=== PATIENT | female | born 1995 | race Caucasian/White ===

== ENCOUNTER 2018-07-03 10:46 | Outpatient (CLI) | payer MEDICAID, SELFPAY ==
[2018-07-03 11:27] LABS: Kit/Specimen SENT
[2018-07-03 11:36] LABS: Abs Immature Grans 0.02 k/cumm (0.0-0.09); Absolute Basophil Count 0.01 k/cumm (0.0-0.2); Absolute Eosinophil Count 0.03 k/cumm (0.0-0.7); Absolute Lymphocyte Count 1.36 k/cumm (1.2-3.4); Absolute Monocyte Count 0.36 k/cumm (0.11-0.7); Absolute Neutrophil Count 6.72 k/cumm (1.2-6.7); Basophils % 0.1; Eosinophils % 0.4; HCT 35.2 % (36.0-46.0); HGB 11.6 g/dL (12.0-15.5); Immature Grans % 0.2; Mean Corpuscular Hemoglobin 29.2 pg (27.0-33.0); Mean Corpuscular Volume 88.7 fL (80-95); Mean Platelet Volume 10.4 fL (8.0-11.0); Monocytes % 4.2; Neutrophils % 79.1; Platelet Count 243 x1000/uL (130-400); RBC 3.97 m/cumm (4.00-5.20); RBC Distribution Width 12.9 % (11.7-14.6)
[2018-07-03 13:16] LABS: *AMPHETAMINES SCREEN URINE Negative (Negative); *BARBITURATES SCREEN URINE Negative (Negative); *BENZODIAZEPINES SCREEN URINE Negative (Negative); Cannabinoids THC Negative (Negative); Cocaine Screen,Urine Negative (Negative); METHADONE URINE SCREEN Negative (Negative); OPIATES URINE SCREEN Negative (Negative)
[2018-07-03 13:20] LABS: Tricyclic Antidepressants Negative (Negative)
[2018-07-04 09:57] LABS: Varicella IgG Antibody Positive
[2018-07-04 10:00] LABS: Syphilis Serology (RPR) Negative (Negative)
[2018-07-04 10:11] LABS: Rubella IgG Ab (UVM) Positive
[2018-07-04 14:12] LABS: Hepatitis B Surface Ag Negative (NEGAT)
[2018-07-04 14:14] LABS: HIV-1/2 Ag & Ab Screen Negative (NEGAT)
[2018-07-04 14:19] LABS: Hepatitis C Ab w Rflx HCV PCR Negative (NEGAT)
[2018-07-06 13:29] LABS: Buprenorphine Negative; Norbuprenorphine Negative
== END 2018-07-03 11:06 ==
PROVIDERS: Visit Provider Advanced Practice Midwife
DX: Z34.91 Encounter for supervision of normal pregnancy, unspecified, first trimester (principal); Z11.59 Encounter for screening for other viral diseases; Z01.84 Encounter for antibody response examination; Z11.4 Encounter for screening for human immunodeficiency virus [HIV]
CPT/HCPCS: 36415; 80055; 80307; 86787; 86803; 86850; 86900; 86901; 87340; 87389; 86592; 86762; 87086

== ENCOUNTER 2018-08-02 14:59 | Outpatient (CLI) | payer MEDICAID, SELFPAY ==
[2018-08-06 16:19] LABS: AFP 44.2 ng/mL; Cigarette smoking status non-smoker; GA used in risk estimate Dates estimate; IVF Pregnancy No; Initial or repeat testing Initial testing; Insulin dependent diabetes No; Maternal Weight 116 lbs; Number of Fetuses 1; Physician Phone Number 802-748-7300; Prev Pregnancy w/NTD No; RECOMMENDED FOLLOW UP None.; Results Summary Normal risk
== END 2018-08-02 15:19 ==
PROVIDERS: Visit Provider Advanced Practice Midwife
DX: Z34.91 Encounter for supervision of normal pregnancy, unspecified, first trimester (principal); Z36.89 Encounter for other specified antenatal screening
CPT/HCPCS: 36415; 82105

== ENCOUNTER 2018-08-28 00:48 | Outpatient (CLI) | payer MEDICAID, SELFPAY ==
--- NOTE | 2018-08-28 14:00 | DI.US_ITS ---
SYMPTOMS/DIAGNOSIS: SURVEY, ANATOMY SCAN, Z34.90 OBSTETRICAL ULTRASOUND: Predicted Gestational Age: Indication/History: 19+3 Wks Range: 18+3 to 20+3 Prior US done on: Determined by: X First US LMP History EDC by prior US: 10/19/18 For multiple gestations: Baby PLACENTA: Grade: I Location: Anterior Posterior PRESENTATION: RT X LT LOW LYING PREVIA Cephalic Trans (Head RT LT ) Varied X Breech BIOMETRY: Anatomy Identified: BPD: 46 mm 19+6 wks 4-chamber Heart X Heart Rate 150 BPM HC: 177 mm 20+1 wks LVOT X Post Fossa X AC: 144 mm 19+5 wks RVOT X Ventricles X FL: 31 mm 19+4 wks Stomach X Nose X Bladder X Lips X Cisterna Magna: 5.0 mm CI: 78 Kidneys X Palate X Cerebellum: 1.92 cm 3- vessel cord X Spine X EFW: grms % Cord Insertion X NS= not seen Composite Age (US) 19+6 wks Many abnormalities cannot be diagnosed. A normal exam does not exclude congenital abnormality. EDC by US 10/16/18 Amniotic Fluid Index: Normal COMMENTS: 0 pounds, 1 ounce RUQ: LUQ: RLQ: LLQ: Total: cm Biophysical Profile: Score 0/2 INGRIS (>2cm) Respirations (>30 sec) Body flexion/extension Extremity flexion/extension TOTAL SCORE Routine examination was performed. There is a single living intrauterine gestation. Estimated sonographic age is 19 weeks 6 days. No or placental abnormalities are identified.
== END 2018-08-28 01:08 ==
PROVIDERS: Visit Provider Advanced Practice Midwife
DX: Z34.92 Encounter for supervision of normal pregnancy, unspecified, second trimester (principal)
CPT/HCPCS: 76805

== ENCOUNTER 2018-10-23 01:13 | Outpatient (CLI) | payer MEDICAID, SELFPAY ==
[2018-10-23 14:37] LABS: HGB 9.6 g/dL (12.0-15.5); Mean Corpuscular Hemoglobin 29.1 pg (27.0-33.0); Mean Corpuscular Volume 90.9 fL (80-95); Mean Platelet Volume 11.1 fL (8.0-11.0); Platelet Count 206 x1000/uL (130-400); RBC Distribution Width 12.9 % (11.7-14.6)
[2018-10-23 14:40] LABS: Glucose,1 Hr (Glucola) 99 mg/dL (80-140)
== END 2018-10-23 01:33 ==
PROVIDERS: Visit Provider Advanced Practice Midwife
DX: Z34.92 Encounter for supervision of normal pregnancy, unspecified, second trimester (principal)
CPT/HCPCS: 36415; 82950; 85027

== ENCOUNTER 2018-12-25 20:20 | Outpatient (REF) | payer MEDICAID, SELFPAY ==
[2018-12-25 19:46] LABS: *AMPHETAMINES SCREEN URINE Negative (Negative); *BARBITURATES SCREEN URINE Negative (Negative); *BENZODIAZEPINES SCREEN URINE Negative (Negative); Cannabinoids THC Negative (Negative); Cocaine Screen,Urine Negative (Negative); METHADONE URINE SCREEN Negative (Negative); OPIATES URINE SCREEN Negative (Negative)
[2018-12-25 19:58] LABS: Tricyclic Antidepressants Negative (Negative)
[2019-01-01 11:23] LABS: Buprenorphine Negative; Norbuprenorphine Negative
== END 2018-12-25 20:40 ==
LOC: LBN 20:20
PROVIDERS: Visit Provider Advanced Practice Midwife
DX: Z34.90 Encounter for supervision of normal pregnancy, unspecified, unspecified trimester (principal); Z22.322 Carrier or suspected carrier of Methicillin resistant Staphylococcus aureus
CPT/HCPCS: 80307; 87081

== ENCOUNTER 2019-01-02 10:17 | Observation (INO) | payer MEDICAID, SELFPAY | END 2019-01-02 12:15 | disposition home or self-care (01) | PROVIDERS: Admitting Provider Obstetrics & Gynecology Gynecology; PCP Family Medicine; Visit Provider Obstetrics & Gynecology Gynecology | DX: Z03.79 Encounter for other suspected maternal and fetal conditions ruled out (principal); Z34.90 Encounter for supervision of normal pregnancy, unspecified, unspecified trimester; Z3A.37 37 weeks gestation of pregnancy | CPT/HCPCS: 59025; G0378 ==

== ENCOUNTER 2019-01-14 07:39 | Inpatient (IN) | payer MEDICAID, SELFPAY ==
[2019-01-14] MEDS: Oxytocin 10 UNITS/ML VIAL IM (08:48)
[2019-01-14] MEDS: Hamamelis Leaf/Glycerin 100 EACH BOX PR (11:44)
[2019-01-14] MEDS: Ibuprofen 600 MG TAB PO (18:31)
[2019-01-15] MEDS: Ibuprofen 600 MG TAB PO (08:03)
== END 2019-01-15 16:00 | disposition home or self-care (01) | DRG 807 ==
PROVIDERS: Admitting Provider Obstetrics & Gynecology; PCP Family Medicine; Visit Provider Obstetrics & Gynecology
DX: O77.0 Labor and delivery complicated by meconium in amniotic fluid (principal); Z37.0 Single live birth; Z3A.39 39 weeks gestation of pregnancy; O92.79 Other disorders of lactation; O99.02 Anemia complicating childbirth; O99.89 Other specified diseases and conditions complicating pregnancy, childbirth and the puerperium; D64.9 Anemia, unspecified; M54.32 Sciatica, left side
CPT/HCPCS: J2590

== ENCOUNTER 2019-02-24 12:48 | Outpatient (REF) | payer MEDICAID, SELFPAY ==
--- NOTE | 2019-02-24 12:00 | PAPFT_PTH ---
PATIENT: Chloe Hudson LOC: [facility] U#:[id number] AGE/SX: 23/F ROOM: RE02/24/[address]: Brittany Woods CNM : 1995 BED: DIS: 02/24/2019 SPEC #: [id number] RECD: 02/24/19 16:03 STATUS: SHRUTHI RENirmal #: [id number] DANA: 02/24/19 12:[address]: Brittany Woods DEPT: COUNT INCLUDES THE [facility] Cytology RECD BY: Yudi Escalera ENTERED: 02/24/19 16:04 SP TYPE: PAPFT OTHR DR: Jackie Travis Tissues: 1 - CX/ENDOCX FOR PAP SMEARS Procedures: PAP THIN PREP/UVM Screening Comments: [id number]
[2019-02-25 16:37] LABS: Chlamydia Result Negative (Negative); GC Result Negative (Negative); Specimen Description CERVIX
== END 2019-02-24 13:08 ==
LOC: LBN 12:48
PROVIDERS: PCP Family Medicine; Visit Provider Advanced Practice Midwife
DX: Z11.3 Encounter for screening for infections with a predominantly sexual mode of transmission (principal); Z12.4 Encounter for screening for malignant neoplasm of cervix; Z11.51 Encounter for screening for human papillomavirus (HPV); Z39.2 Encounter for routine postpartum follow-up
CPT/HCPCS: 87491; 87591; 88142

== ENCOUNTER 2019-03-03 16:55 | Outpatient (REF) | payer MEDICAID, SELFPAY | END 2019-03-03 17:15 | LOC: LBN 16:55 | PROVIDERS: PCP Family Medicine; Visit Provider Advanced Practice Midwife | DX: N89.8 Other specified noninflammatory disorders of vagina (principal) | CPT/HCPCS: 87480; 87510; 87660 ==

== ENCOUNTER 2019-03-10 01:07 | Outpatient (CLI) | payer MEDICAID, SELFPAY ==
--- NOTE | 2019-03-10 14:03 | DI.US_ITS ---
EXAM: US PELVIS AND TRANSVAGINAL CLINICAL HISTORY: bleeding after IUD placed 03/03, 7 wks TECHNIQUE: Ultrasound performed using standard protocol. Transabdominal and transvaginal exams wer e performed. COMPARISON: US OB 2-3 trimester from 08/28/2018 FINDINGS: The uterus measures 8 x 3.9 x 6.0 cm. An IUD is seen positioned within the endometrium. The endomet rium measures 4 millimeters in thickness. The ovaries are normal in size and appearance. There is a small amount of free fluid in the cul-de-sac. The kidneys are unremarkable. IMPRESSION: An IUD appears appropriately positioned within the endometrium.
== END 2019-03-10 01:27 ==
PROVIDERS: PCP Family Medicine; Visit Provider Advanced Practice Midwife
DX: Z30.431 Encounter for routine checking of intrauterine contraceptive device (principal); N93.8 Other specified abnormal uterine and vaginal bleeding
CPT/HCPCS: 76830; 76856

== ENCOUNTER 2019-06-16 11:25 | Outpatient (CLI) | payer MEDICAID, SELFPAY ==
[2019-06-16 13:13] LABS: FREE T4 0.92 ng/dL (0.76-1.46); TSH 0.58 uIU/mL (0.36-3.74)
[2019-06-17 16:48] LABS: T3,Free 3.2 pg/mL (2.8-5.3)
== END 2019-06-16 11:45 ==
PROVIDERS: PCP Family Medicine; Visit Provider Advanced Practice Midwife
DX: Z13.29 Encounter for screening for other suspected endocrine disorder (principal); Z83.49 Family history of other endocrine, nutritional and metabolic diseases
CPT/HCPCS: 36415; 84439; 84443; 84481

== ENCOUNTER 2019-12-22 13:55 | Outpatient (REF) | payer MEDICAID, SELFPAY ==
[2019-12-22 19:43] LABS: TSH (W/Ref FT4) 0.46 uIU/mL (0.36-3.74); Vitamin B12 422 pg/mL (193-986)
== END 2019-12-22 14:15 ==
LOC: NCHCN 13:55
PROVIDERS: PCP Family Medicine; Visit Provider Nurse Practitioner
DX: E53.8 Deficiency of other specified B group vitamins (principal); Z83.49 Family history of other endocrine, nutritional and metabolic diseases
CPT/HCPCS: 82607; 84443

== ENCOUNTER 2020-07-08 02:40 | Outpatient (CLI) | payer MEDICAID, SELFPAY ==
[2020-07-08 10:15] LABS: Kit/Specimen SENT
[2020-07-08 10:28] LABS: Abs Immature Grans 0.02 10^3/uL (0.0-0.06); Absolute Basophil Count 0.02 10^3/uL (0.0-0.2); Absolute Eosinophil Count 0.06 10^3/uL (0.0-0.7); Absolute Lymphocyte Count 1.19 10^3/uL (1.2-3.4); Absolute Neutrophil Count 5.76 10^3/uL (1.2-6.7); Basophils % 0.3; Eosinophils % 0.8; HCT 35.4 % (36.0-46.0); HGB 11.4 g/dL (11.2-15.7); Immature Grans % 0.3; Lymphocytes % 15.8; MCH 29.8 pg (27.0-33.0); MCHC 32.2 % (32.0-36.0); MCV 92.7 fL (80-95); MPV 10.4 fL (8.0-11.0); Monocytes % 6.6; Neutrophils % 76.2; Nucleated RBC 0 %; Platelet Count 240 10^3/uL (130-400); RBC 3.82 10^6/uL (3.93-5.22); RDW 12.5 % (11.7-14.6); RDW-SD 42.8 fL; WBC 7.55 10^3/uL (4.4-10.8)
[2020-07-08 11:14] LABS: ALT 14 U/L (14-59); AST 11 U/L (15-37); Albumin 3.4 g/dL (3.4-5.0); Alkaline Phosphatase 47 U/L (46-116); Anion Gap 5.7 mmol/L (3-11); BUN 6 mg/dL (7-18); Bilirubin, Total 0.3 mg/dL (0.2-1.0); CO2 27.3 mmol/L (21.0-32.0); CREATININE 0.5 mg/dL (0.55-1.02); Calcium 8.6 mg/dL (8.5-10.1); Chloride 102 mmol/L (98-107); Glucose 67 mg/dL (74-106); Potassium 4.1 mmol/L (3.5-5.1); Sodium 135 mmol/L (136-145); Total Protein 6.8 g/dL (6.4-8.2)
[2020-07-09 09:34] LABS: Hepatitis B Surface Ag Negative (Negative)
[2020-07-09 10:13] LABS: HIV-1/2 Ag & Ab Screen Negative (Negative)
[2020-07-09 10:19] LABS: Hepatitis C Ab w Rflx HCV PCR Negative (Negative)
[2020-07-09 10:39] LABS: Varicella IgG Antibody Positive (See Note)
[2020-07-09 10:42] LABS: Rubella IgG Ab (UVM) Positive (See Note)
[2020-07-10 10:41] LABS: Syphilis Total Ab w/Reflex Nonreactive (Nonreactive)
== END 2020-07-08 02:41 | disposition home or self-care (01) ==
PROVIDERS: PCP Nurse Practitioner; Visit Provider Advanced Practice Midwife
DX: Z34.91 Encounter for supervision of normal pregnancy, unspecified, first trimester (principal); Z11.4 Encounter for screening for human immunodeficiency virus [HIV]; Z11.59 Encounter for screening for other viral diseases; Z01.84 Encounter for antibody response examination
CPT/HCPCS: 36415; 80053; 86787; 86803; 86850; 86900; 86901; 87340; 87389; 85025; 86762; 86780

== ENCOUNTER 2020-07-08 15:28 | Outpatient (REF) | payer MEDICAID, SELFPAY ==
[2020-07-08 13:16] LABS: *AMPHETAMINES SCREEN URINE Negative (Negative); *BARBITURATES SCREEN URINE Negative (Negative); *BENZODIAZEPINES SCREEN URINE Negative (Negative); Cannabinoids THC Negative (Negative); Cocaine Screen,Urine Negative (Negative); METHADONE URINE SCREEN Negative (Negative); OPIATES URINE SCREEN Negative (Negative)
[2020-07-08 13:18] LABS: Tricyclic Antidepressants Negative (Negative)
[2020-07-09 16:25] LABS: Chlamydia Result Negative (Negative); GC Result Negative (Negative)
[2020-07-15 10:09] LABS: Buprenorphine Negative ng/mL (Cutoff: 5.0); Norbuprenorphine Negative ng/mL (Cutoff: 2.5)
== END 2020-07-08 15:29 | disposition home or self-care (01) ==
LOC: LBN 15:28
PROVIDERS: PCP Nurse Practitioner; Visit Provider Advanced Practice Midwife
DX: Z34.91 Encounter for supervision of normal pregnancy, unspecified, first trimester (principal); N89.8 Other specified noninflammatory disorders of vagina; Z11.3 Encounter for screening for infections with a predominantly sexual mode of transmission
CPT/HCPCS: 80307; 87491; 87591; 87086; 87480; 87510; 87660

== ENCOUNTER 2020-08-19 02:08 | Outpatient (CLI) | payer MEDICAID, SELFPAY ==
[2020-08-23 11:16] LABS: AFP 43.7 ng/mL; Calculated age at EDD 27 years; Cigarette smoking status non-Smoker; GA used in risk estimate Dates estimate; IVF Pregnancy No; Initial or repeat testing Initial testing; Insulin dependent diabetes No; Maternal Weight 114 lbs; Number of Fetuses 1; Physician Phone Number 802-748-7300; Prev Pregnancy w/NTD No; RECOMMENDED FOLLOW UP None.; Results Summary Normal risk
== END 2020-08-19 02:09 | disposition home or self-care (01) ==
PROVIDERS: Advanced Practice Midwife; PCP Nurse Practitioner; Visit Provider Advanced Practice Midwife
DX: Z34.91 Encounter for supervision of normal pregnancy, unspecified, first trimester (principal); Z36.89 Encounter for other specified antenatal screening
CPT/HCPCS: 36415; 82105

== ENCOUNTER 2020-08-27 04:15 | Outpatient (CLI) | payer MEDICAID, SELFPAY ==
--- NOTE | 2020-08-27 07:45 | DI.US_ITS ---
Exam(s) US OB 2-3 TRIMESTER EXAM: US OB 2-3 TRIMESTER CLINICAL HISTORY: anatomy and placental location,Z34.90. TECHNIQUE: Transabdominal obstetrical ultrasound performed. COMPARISON: US US PELVIS TRANSVAGINAL from 03/10/2019 FINDINGS: Transabdominal obstetrical ultrasound performed. FINDINGS: Number of fetuses: One. position: Varied throughout the examination. heart rate: 136 bpm. Placental location: Anterior. No evidence of previa. Amniotic fluid index: Visually, amount of fluid is within normal limits. ANATOMICAL SURVEY: Within normal limits. BIOMETRIC DATA: BPD: 4.5cm consistent with 19 weeks 4 days. HC: 16.3cm consistent with 19 weeks 1 day. AC: 13.7cm consistent with 19 weeks 1 day. FL: 2.9cm consistent with 19 weeks. Cisterna Magna: 3.8 mm Cerebellum: 1.92 cm Composite Age: 19 weeks 2 days EDC by US: 01/19/2021 Heart Rate: 136BPM IMPRESSION: 1. Single live intrauterine gestation as above. 2. Normal anatomic survey. DATA REPOSITORY:
== END 2020-08-27 04:35 ==
PROVIDERS: PCP Nurse Practitioner; Visit Provider Advanced Practice Midwife
DX: Z34.92 Encounter for supervision of normal pregnancy, unspecified, second trimester (principal); Z3A.19 19 weeks gestation of pregnancy
CPT/HCPCS: 76805

== ENCOUNTER 2020-09-10 13:31 | Outpatient (CLI) | payer MEDICAID, SELFPAY ==
--- NOTE | 2020-09-10 15:00 | RT.EKG_ITS ---
APPROVED REPORT Exam: Resting ECG Reason for Exam: 21 wks , r/o arythmia Patient Location: O HR:92 bpm ECG Measurements Heart Rate 92 AXIS AK 152 P 60 QRSd 64 QRS 75 QT 351 T 22 QTc 433 Conclusion Sinus rhythm...normal P axis, V-rate 60- 99
== END 2020-09-10 13:32 | disposition home or self-care (01) ==
LOC: RT 13:32
PROVIDERS: PCP Nurse Practitioner; Visit Provider Advanced Practice Midwife
DX: Z03.79 Encounter for other suspected maternal and fetal conditions ruled out (principal); Z3A.21 21 weeks gestation of pregnancy
CPT/HCPCS: 93005; 93010

== ENCOUNTER 2020-10-01 11:06 | Outpatient (RCR) | payer MEDICAID, SELFPAY ==
--- NOTE | 2020-10-01 11:00 | HOLTER_ITS ---
APPROVED REPORT Conclusion There is a 48-hour monitor ordered for indication of chest discomfort. Patient was in normal sinus rhythm with majority the recording with an average heart rate of 86 bpm. There were no episodes of supraventricular tachycardia nor any episodes of ventricular tachycardia. There were rare PACs/PVCs. There were no episodes of atrial fibrillation, no pauses greater than 3 seconds and no evidence of hi gh degree heart block. There was 1 patient diary event reported as chest tightness that was not associated with any signific ant arrhythmia.
== END 2020-10-20 23:59 | disposition home or self-care (01) ==
LOC: RT 11:06
PROVIDERS: PCP Nurse Practitioner; Visit Provider Internal Medicine Cardiovascular Disease
DX: R07.89 Other chest pain (principal)
CPT/HCPCS: 93225; 93226

== ENCOUNTER 2021-01-27 19:21 | Inpatient (IN) | payer MEDICAID, SELFPAY ==
[2021-01-27] VITALS (10 sets, daily range): BP systolic 107–146; BP diastolic 56–82; PULSE 70–110; RESP 16; TEMP 37.2
[2021-01-27 20:00] LABS: Source Nasal/Nares
[2021-01-27 20:01] LABS: HCT 35.5 % (36.0-46.0); HGB 11.3 g/dL (11.2-15.7); MCH 29.7 pg (27.0-33.0); MCHC 31.8 % (32.0-36.0); MCV 93.2 fL (80-95); MPV 12.2 fL (8.0-11.0); Platelet Count 171 10^3/uL (130-400); RBC 3.81 10^6/uL (3.93-5.22); RDW 14.3 % (11.7-14.6); RDW-SD 48.8 fL; WBC 14.61 10^3/uL (4.4-10.8)
[2021-01-27] MEDS: fentaNYL 100 MCG/2 ML VIAL 15 MCG IT (20:36)
--- NOTE | 2021-01-27 20:36 | W.ANESPROC ---
Intrathecal Analgesia Date Performed: 01/27/21 Procedure Time: 20:37 Requesting Provider: ifeoma Woods Procedure Location: Obstetrics Reason Performed: Labor Intrathecal Analgesia Standard Monitors Applied: ECG, Blood Pressure and SpO2 Patient Position: Sitting Timeout Performed: Yes Sedation Given (Indicate Dose Given): No Sedation given Patient Mental Status: Awake Sterility: Hand Hygiene, Surgical Cap, Surgical Mask, Sterile Gloves, Sterile Drape/Sheet, Eye Protection and Chlorhexidine Placement Site: L2-L3 Interspace Spinal Needle Type: Sprotte 25 Gauge Needle Length: 3.5 Inch Spinal Procedure: Site Prepped, Sterile Drape Placed, 1% Lidocaine to skin and subcutaneous tissue with 25G needle (1cc), Introducer Needle Used, Spinal Needle Placed, Negative Heme, Positive CSF Flow and Medication Injected Paresthesia: None Spinal Local Anesthetic (Indicate Dose Given): Bupivacaine 0.25% PF (ml) Dose:: 1 cc Additives (Indicate Dose Given): Fentanyl PF Dose:: 15 mcg and Duramorph PF Dose:: 200 mcg Ultrasound: Not Used Number of Attempts (See previous attempts in note section): 1 Procedure Tolerated: No Complications and Patient tolerated well Procedure Outcome: Successful Performed By: Porfirio Yee
--- NOTE | 2021-01-27 20:52 | W.ANESPRE ---
General Info Date of Service Date Performed: 01/27/21 Height: 5 ft 4 in Weight: 65.771 kg Body Mass Index (BMI): 24.9 Meds Allergies and Home Medications Allergies Allergy/AdvReac Type Severity Reaction Status Date / Time adhesive tape AdvReac Intermediate Skin Rash Verified 10/01/20 10:28 Home Medication Medication Instructions Recorded prenat.vits,gerber,[id number] 1 tab PO DAILY 06/20/18 vitamin B complex 1 tab PO DAILY 11/21/18 fluticasone propionate 50 1 spray LLOYD DAILY #15.8 gm 12/25/18 mcg/actuation nasal spray,suspension Current Visit Medications: Current Medications Generic Name Dose Route Start Last Admin Trade Name Freq PRN Reason Stop Dose Admin Bupivacaine HCl 1 ml 01/27/21 20:28 Bupivacaine 0.25% Pres-Free 10 Ml Vial IT 01/27/21 20:29 NOW ONE Diphenhydramine HCl 25 mg 01/27/21 20:28 Diphenhydramine 50 Mg/Ml Vial IVP 01/28/21 20:29 Q6H PRN PRN Persistent pruritis face/trunk Fentanyl 15 mcg 01/27/21 20:28 01/27/21 20:36 Fentanyl 100 Mcg/2 Ml Vial IT 01/27/21 20:29 15 mcg NOW ONE Administration Sodium Chloride 500 mls @ 0 mls/hr 01/27/21 19:21 Saline 500ml Bag IV PRN PRN As Directed Ringer's Solution 1,000 mls @ 125 mls/hr 01/27/21 19:30 IV INFUSION TRIXIE Nalbuphine HCl 5 mg/ Sodium 50.5 mls @ 100 mls/hr 01/27/21 20:28 Chloride IVPB Q3H PRN PRN PRURITIS Naloxone HCl 2 mg/ Sodium 500 mls @ 8.221 mls/hr 01/27/21 20:28 Chloride IV INFUSION PRN PRURITIS 0.5 MCG/KG/HR IV Miscellaneous Supplies 1 each 01/27/21 19:30 Iv Access IV DIRECTED TRIXIE Morphine Sulfate 200 mcg 01/27/21 20:28 Morphine 39571 Mcg/10 Ml Vial IT 01/27/21 20:29 NOW ONE Naloxone HCl 0 mg 01/27/21 20:28 Naloxone 0.4 Mg/Ml Vial IVP 01/28/21 20:28 DIRECTED PRN Ondansetron HCl 4 mg 01/27/21 20:28 Ondansetron 4 Mg/2 Ml Vial IVP 01/28/21 20:29 Q6H PRN PRN Nausea Sodium Chloride 0 ml 01/27/21 19:21 Normal Saline Flush 10 Ml Syr IVP PRN PRN PFSH Active Problems Active Problems: Problem Status Onset Code Spontaneous onset of labor Positive test Z32.01 Fluttering heart I49.8 Feeling of chest tightness R07.89 Dyspareunia in female N94.10 Vaginal discharge N89.8 Z34.90 History of migraine Z86.69 Family history of hypothyroidism Z83.49 Medical History Medical History Family history of hypothyroidism History of ear infection Difficult visualization of Tympanic membranes due to anatomy History of migraine Positive test Presence of of copper intrauterine contraceptive device Tobacco Smoking/Tobacco Use Status: Former Tobacco Use Alcohol Alcohol Intake: former Substance Use Substance use type: does not use Prental History History 3 Para 2 Hx # Term Pregnancies 2 Multiple births 0 Hx # Pregnancies 0 Ectopic pregnancies 0 AB induced 0 Hx Number of Living Children 2 AB spontaneous 0 Past Pregnancies Del. Date GA/Weeks # Outcome Route Wgt Sex Labor Lgth Anesthesia Location [facility] 08/01/17 40 No Successful vaginal 3146.797 g Female 11 hrs [facility] 01/14/19 39 No Successful vaginal 3231.846 g Male Anea 10/28/20 28 Delivery Date: 08/01/17 epidural at 7 cm I finally gave in. Tierney Rowan Delivery Date: 01/14/19 AROM, moderate mec. staining noted. Minor labial abrasions, no need for repair. Yonathan, generally unsatisfied with the experience, wasn't offered the tub or physioball, etc. Viri Woods Delivery Date: 10/28/20 Patient has transferred OB care to Home midwifery service. Dianna Rangel Vital Signs and Lab Results Vital Signs Most Recent Vital Signs in EMR: Most Recent Vital Signs Pulse BP 73 126/81 01/27/21 20:29 01/27/21 20:33 Lab Results Result Diagrams: 01/27/21 19:50 Blood Type / Crossmatch: Patient ABO/Rh O Positive 01/27/21 19:50 01/27/21 Antibody Screen NEGATIVE 01/27/21 19:50 01/27/21 Complete Blood Count: White Blood Count 14.61 10^3/uL (4.4-10.8) H 01/27/21 19:50 01/27/21 Red Blood Count 3.81 10^6/uL (3.93-5.22) L 01/27/21 19:50 01/27/21 Hemoglobin 11.3 g/dL (11.2-15.7) 01/27/21 19:50 01/27/21 Hematocrit 35.5 % (36.0-46.0) L 01/27/21 19:50 01/27/21 Platelet Count 171 10^3/uL (130-400) 01/27/21 19:50 01/27/21 Complete Metabolic Panel: No Data to Display Liver Function Panel: No Data to Display Coagulation Panel: No Data to Display Cardiac Panel: No Data to Display Arterial Blood Gas: No Data to Display Venous Blood Gas: No Data to Display Pancreas Panel: No Data to Display Thyroid Panel: No Data to Display Infectious Disease: Coronavirus (COVID-19)(PCR) Pending 01/27/21 19:45 01/27/21 Coronavirus 2019 Source Nasal/Nares 01/27/21 19:45 01/27/21 Blood Cultures: No Data to Display Toxicology Panel: No Data to Display Panel: No Data to Display Imaging and Studies Imaging and Studies Other Study Summary:: negative Holter Monitor 09/2018 Anesthesia Assessment and Plan Anesthesia History Personal History: No History of Anesthesia Complications Family History: No Family History of Anesthesia Complications Exercise Tolerance Exercise Tolerance: Metabolic Equivalents>4 Pertinent Negatives Pertinent Negatives: No Symptoms of GERD, No Major Cardiovascular Symptoms or Complaints, No Major Pulmonary Symptoms or Complaints and No History of CVA/TIA Cardiac & Pulmonary Exam Cardiac Exam: Normal S1/S2 Heart Sounds Pulmonary Exam: Clear Bilateral Breath Sounds Airway Exam Known Difficult Airway: No Mallampati Class: 2 Mouth Opening: Normal (> 3cm) Thyromental Distance: Greater than 3 cm Neck Range of Motion: Full ROM Teeth Condition: Normal Dentition ASA Classification ASA Score: ASA 2 Emergency Case?: No NPO Status NPO Status: Full Stomach Status Status: Confirmed Anesthesia Plan Resuscitation Status: Full Code Airway Planned: Natural Airway Pain Management: Intrathecal Analgesia Monitors Used: Standard Monitors
[2021-01-27 21:10] LABS: COVID-19 PCR Negative (Negative)
--- NOTE | 2021-01-27 22:13 | W.PM.OBNL1 ---
Date of service: 01/27/21 Time of Service: 22:13 Pelvic Exam Dilation: 10 station: 0 Position: LOT Contractions Contraction Frequency(min): q4 Intensity: Moderate/Strong Assessment and Plan Assessment and plan (1) Spontaneous onset of labor: Status: Acute Assessment and plan: A: Apparent intolerance of 2nd stage pushing effort Decel resolved and baseline 140 with moderate variability P: Pt to rest in right lateral position, Assess for passive descent of head Dr. Portillo notified of status, will be in to evaluate Will delay further coached pushing efforts until MD inhouse (2) Prolonged heart deceleration: Status: Acute Assessment and plan: Resolved with pt in right lateral position, awaiting passive descent. Objective Full dilation and 2nd stage huddle at 2142 head at 0/+1 station, coached pushing started Maternal position semi-fowlers with feet on squat bar Strong maternal effort noted with FHT decel to 80 Intentional pushing efforts stopped, pt to left side, then to right side 02 per mask and IV fluid rate increased, decel resolved after 3-4 minutes Pt now resting on right side to encourage passive descent Dr. Portillo notified of prolonged deceleration and is en route Subjective Patient Reports: No new Complaints
[2021-01-27] MEDS: Lactated Ringers 1,000 ML 125 ML IV (22:24)
[2021-01-27] MEDS: Lactated Ringers 500 ML IV (22:25)
--- NOTE | 2021-01-27 23:35 | W.OBDELIVERY ---
Date of service: 01/27/21 Time of Service: 23:35 OB Labor/ Delivery Information Baby A Delivery Delivery Method: Spontaneaous Presentation: Cephalic Cephalic Position: Vertex Vertex Position: Left Occipital Anterior Breech Position: N/A Cord Description-Baby A: 3 Vessels Amniotic Fluid: Clear Estimated Blood Loss: 250 Delivery Outcome: Liveborn Transferred: Remains with Mother Note: Initial pushing efforts at 2200 were stopped when FHT decel'ed to 70-90 with slow recovery, resolving after 4 minutes with maternal position change x3 & 02 per mask, pt then rested on her right side and relaxed/breathed through contractions using nitrous inhalant for 30 minutes to facilitate passive descent. Dr. Portillo arrived to room and concerted pushing efforts were resumed, FHT remained without deceleration and good descent was achieved. 20 minutes later of a vigorous female infant over intact perineum, nuchal hand noted as shoulders delivered easily, FOB supported head and emerging body with CNM hands supporting his, then handed his infant daughter to mother's arms. Pitocin bolus IV begun, cord ceased pulsating and was clamped then cut by FOB. Magana placenta intact with 3VC. Introitus, vulva and vagina inspected and found to be intact, superficial bilateral labial skid ayoub not bleeding, well approximated, not repaired. Strong family bonding observed, minimal rubra, fundus firm below umbilicus. Apgars 8/9, weight 4520 gms. Providers Doctor: Dianna Portillo Nurse Drill Press Operator For Metal: Viri Woods Nurse: Annabelle Merchant Nurse: Raysa Mehta Labor/Delivery Information Number of Babies in Womb: 1 Steroids Given: None Reason Steroids Not Administered: N/A Group Beta Strep: Negative Antibiotics Administered: No Rubella Status: Immune Blood Type: O+ Varicella Immunity: Immune Maternal Complications: None Shoulder Dystocia: No Stages of Labor Onset of Labor Date: 01/27/21 Complete Dilatation Date: 01/27/21 Complete Dilatation Time: 21:38 ROM Baby A: 01/27/21 ROM Baby A: 20:27 ROM Total Time- Baby A: [id number] Delivery Date-Baby A: 01/27/21 Infant Delivery Time-Baby A: 22:50 Labor Stage 2 Duration: 1 hours and 12 minutes Placenta Delivery Date-Baby A: 01/27/21 Placenta Delivery Time-Baby A: 23:01 Labor-Stage 3 Duration: 11 minutes Placenta Status: Delivered Baby A Infant Gender: Female Gestational Status: Term (39-41.6 wks) Gestational Age in Weeks/Days: 41 Weeks and 0 Days weight: 9 lb 15.438 oz Weight Comment: 4520 gms Score-1 Minute Interval(Baby A) Heart Rate-1 minute: 100 BPM or Greater Respiratory Effort- 1 minute: Spontaneous/Strong Cry Muscle Tone-1 minute: Active Movement Reflex Response-1 minute: Prompt Response Color-1 minute: Pallor or Cyanosis Total Score-1 minute: 8 Score-5 Minute Interval(Baby A) Heart Rate- 5 minute: 100 BPM or Greater Respiratory Effort-5 minute: Spontaneous/Strong Cry Muscle Tone-5 minute: Active Movement Reflex Response-5 minute: Prompt Response Color-5 minute: Bluish Hands or Feet Total Score- 5 minute: 9 Procedure Procedures: Cord Blood Collection
[2021-01-27] MEDS: Ondansetron 4 MG/2 ML VIAL IVP (23:58)
[2021-01-28 00:23] VITALS: BP 132/78; PULSE 68; RESP 16
[2021-01-28 00:50] VITALS: BP 119/69; PULSE 65; RESP 16
[2021-01-28 02:00] VITALS: BP 120/67; PULSE 61; RESP 16; TEMP 36.6; O2SAT 98
[2021-01-28 03:20] VITALS: BP 121/75; PULSE 63; RESP 16
--- NOTE | 2021-01-28 06:05 | W.ANESPOSTOP ---
Postoperative Evaluation Date, Time and Location Date Performed: 01/28/21 Time Performed: 06:05 Patient Location: Obstetrics Vital Signs Most Recent Imported Vital Signs: Most Recent Vital Signs Temp Pulse Resp BP Pulse Ox 36.6 C 63 16 121/75 98 01/28/21 02:00 01/28/21 03:20 01/28/21 03:20 01/28/21 03:20 01/28/21 02:00 Pain Score Most Recent Pain Score: Most Recent Pain Score Pain Level 8 01/27/21 19:54 Assessment Mental Status: Awake (Alert & Oriented to Patient Baseline) Airway and Respiratory Function: Patent airway with normal (patient baseline) respiratory exam Cardiovascular Function: Hemodynamically Stable Hydration Status: Adequately Hydrated Nausea & Vomiting: No Nausea or Vomiting Pain: Pt. Denies Any Pain Peripheral Nerve Block: Other (Intrathecal resolved appropriately)
--- NOTE | 2021-01-28 06:51 | W.PM.OBPNV1 ---
Date of service: 01/28/21 Time of Service: 10:09 Assessment and Plan Assessment and plan (1) Term delivered: Status: Acute Assessment and plan: A: PPD#1, nml recovery at 12 hours going well, experienced mom Desires to be discharged today and return to the care of her LM Handles baby comfortably and confidently P: 45 minutes spent with pt and FOB debriefing events of delivery Pt and FOB express satisfaction with experience Pt is undecided about choice of BCM, will discuss with FOB Will discharge today to home Written instructions reviewed and given to pt F/up with Theresa Elizabeth LM Subjective Subjective Patient comments: No complaints, Pain well controlled and Tolerating diet baby status: Doing well, Nursing well, Rooming in and Strong Bonding Observed feeding status: Exclusively breast feeding Exam Physical Exam Vital signs: Temp Pulse Resp BP Pulse Ox 97.9 F 63 16 121/75 98 01/28/21 02:00 01/28/21 03:20 01/28/21 03:20 01/28/21 03:20 01/28/21 02:00 Vital Signs Reviewed: Yes Constitutional Constitutional: no acute distress HEENT Exam HEENT Exam: Normal Neck Exam Neck Exam: Normal Breast Exam Bilateral: Breast Exam: Normal and Soft Nipple Exam: Normal and Uninjured Respiratory Exam Respiratory Exam: Normal Cardiovascular Exam Cardiovascular Exam: Normal Abdominal Exam Abdomen: Other (soft, nontender) Fundal Exam Fundus: Below Umbilicus and Firm Rectal Exam Rectal Exam: Hemmorhoids Exam Perineum: Intact Extremities Exam Extremity Exam: Normal Back/Spine/Pelvis Exam Back Exam: Normal Skin Exam Skin Exam: Normal Neurological Exam Neurological Exam: Normal Psychiatric Exam Psychiatric Exam: Normal Results Hemoglobin/Hematocrit: Hgb 11.3 g/dL (11.2-15.7) 01/27/21 19:50 Hct 35.5 % (36.0-46.0) L 01/27/21 19:50
--- NOTE | 2021-01-28 11:10 | W.PM.OBDISCH ---
Date of service: 01/28/21 Time of Service: 11:10 DS: Diagnosis Discharge Diagnosis (1) Term delivered: Status: Acute Discharge Plan Disposition Patient Disposition: HOME Condition: Good Discharge Details Reason For Visit: TERM LABOR Admit Date/Time: 01/27/21 19:21 Admit Provider: Viri Woods Attending Provider: Viri Woods Primary Care Provider: Steffi Morris Hospital Course Hospital Course: , pt desires discharge on PPD#1, will return to the care of her Revenue Cycle Administrator Home Meds and New Rx's Prescriptions: No Action prenat.vits,gerber,[id number] tablet 1 tab PO DAILY RF: 0 fluticasone propionate [Flonase Allergy Relief] 50 mcg/actuation spray,suspension 1 spray LLOYD DAILY Qty: 15.8 RF: 0 vitamin B complex [B Complex-Vitamin B12] Tablet 1 tab PO DAILY RF: 0 Discharge Instructions Additional Instructions: Please feel free to call [facility] or the coat agent configuration release manager for any concerns or questions, or for an appointment to discuss control methods. Stand Alone Forms: BC Instructions, NB Instructions, BC Post Vaginal Deliver Activity:: Activity as Tolerated Equipment/Supplies:: No Equipment Needed Diet:: Normal Diet Discharge Orders Discharge Orders: Discharge Order (Routine); Ordered 01/28/21 Ordered By: Viri Woods OB:DS Summary Summary Vaginal Delivery Method: Spontaneaous Contraception Discussed Contraception Discussed: Yes Contraceptive Plan: Undecided, Infant Gender-Baby A: Female weight: 9 lb 15.438 oz Status at Discharge Functional status at discharge: independent ambulation Overall status at discharge: patient is progressing back to baseline Mental Status: mental status grossly normal Speech and Movement: speech and movement normal and speech clear Mood: congruent mood Affect: normal affect Exam Physical Exam Vital signs: Temp Pulse Resp BP Pulse Ox 97.9 F 63 16 121/75 98 01/28/21 02:00 01/28/21 03:20 01/28/21 03:20 01/28/21 03:20 01/28/21 02:00 Vital Signs Reviewed: Yes Constitutional Constitutional: no acute distress HEENT Exam HEENT Exam: Normal Neck Exam Neck Exam: Normal Breast Exam Bilateral: Breast Exam: Normal and Soft Respiratory Exam Respiratory Exam: Normal Cardiovascular Exam Cardiovascular Exam: Normal Abdominal Exam Abdomen: Other (soft, nontender) Fundal Exam Fundus: Below Umbilicus and Firm Rectal Exam Rectal Exam: Hemmorhoids Exam Perineum: Intact Extremities Exam Extremity Exam: Normal Back/Spine/Pelvis Exam Back Exam: Normal Skin Exam Skin Exam: Normal Neurological Exam Neurological Exam: Normal Psychiatric Exam Psychiatric Exam: Normal [facility] Medical History (Updated 01/28/21 @ 06:52 by Viri Woods) Family history of hypothyroidism History of ear infection Difficult visualization of Tympanic membranes due to anatomy History of migraine Positive test Presence of of copper intrauterine contraceptive device Prolonged heart deceleration Spontaneous onset of labor Vaginal discharge Family History Mother Rheumatoid arthritis Thyroid disease Lupus (systemic lupus erythematosus) Father Family history unknown Maternal Grandmother Well adult Maternal Grandfather Diabetes Heart disease Paternal Grandmother Family history unknown Paternal Grandfather Family history unknown Social History Smoking/Tobacco Use Status: Former Tobacco Use Smoking risk assessment performed?: Yes Alcohol Intake: former Substance use type: does not use Female Reproductive History Menstrual control method: copper IUCD History History 3 Para 2 Hx # Term Pregnancies 2 Multiple births 0 Hx # Pregnancies 0 Ectopic pregnancies 0 AB induced 0 Hx Number of Living Children 2 AB spontaneous 0 Past Pregnancies Del. Date GA/Weeks # Outcome Route Wgt Sex Labor Lgth Anesthesia Location [facility] 08/01/17 40 No Successful vaginal 6 lb 15 oz Female 11 hrs [facility] 01/14/19 39 No Successful vaginal 7 lb 2 oz Male Anea 10/28/20 28 Delivery Date: 08/01/17 epidural at 7 cm I finally gave in. Tierney Rowan Delivery Date: 01/14/19 AROM, moderate mec. staining noted. Minor labial abrasions, no need for repair. Yonathan, generally unsatisfied with the experience, wasn't offered the tub or physioball, etc. Viri Woods Delivery Date: 10/28/20 Patient has transferred OB care to Home midwifery service. Dianna Rangel DS: Data Vitals/I&O Vitals and I&O: Vital Signs Temperature 97.9 F 01/28/21 02:00 Pulse 63 01/28/21 03:20 Pulse Rhythm Regular 01/27/21 20:19 Respiratory Rate 16 01/28/21 03:20 Blood Pressure 121/75 10/08/21 03:20 Blood Pressure Mean 90 01/28/21 03:20 Pulse Oximetry 98 01/28/21 02:00 Oxygen Delivery Method Room Air 01/27/21 19:54 Oxygen Flow Rate 0 01/27/21 19:54 Pain Level 8 01/27/21 19:54 Intake & Output 01/27/21 01/27/21 01/28/21 11:59 23:59 11:59 Output Total 800 / 800 Balance -800 / -800 Weight 145 lb Output: Urine 800 / 800 Data Completed and Pending Labs on day of discharge: Labs from last 24 hours 01/27/21 01/27/21 01/27/21 23:54 23:54 19:50 WBC RBC Hgb Hct MCV MCH MCHC RDW Plt Count MPV Hemoglobin A1c Pending Cancelled COVID-19 Source SARS-CoV-2 (PCR) Patient ABO/Rh O Positive Antibody Screen NEGATIVE 01/27/21 01/27/21 19:50 19:45 WBC 14.61 H RBC 3.81 L Hgb 11.3 Hct 35.5 L MCV 93.2 MCH 29.7 MCHC 31.8 L RDW 14.3 Plt Count 171 MPV 12.2 H Hemoglobin A1c COVID-19 Source Nasal/Nares SARS-CoV-2 (PCR) Negative Patient ABO/Rh Antibody Screen
[2021-01-28 11:59] VITALS: BP 123/82; PULSE 84; RESP 16; TEMP 36.8; O2SAT 99
[2021-01-28 13:17] LABS: Hemoglobin A1C 5.7 % (<5.7)
== END 2021-01-28 13:25 | disposition home or self-care (01) | DRG 807 ==
PROVIDERS: Admitting Provider Advanced Practice Midwife; PCP Nurse Practitioner; Visit Provider Advanced Practice Midwife
DX: O76 Abnormality in fetal heart rate and rhythm complicating labor and delivery (principal); Z37.0 Single live birth; Z3A.40 40 weeks gestation of pregnancy
CPT/HCPCS: 36415; 85027; 86850; 86900; 86901; 87635; 83036; J2405; J3010

== ENCOUNTER 2021-05-04 15:15 | Outpatient (REF) | payer MEDICAID, SELFPAY ==
[2021-05-04 19:18] LABS: Abs Immature Grans 0.01 10^3/uL (0.0-0.06); Absolute Basophil Count 0.03 10^3/uL (0.0-0.2); Absolute Lymphocyte Count 1.37 10^3/uL (1.2-3.4); Absolute Monocyte Count 0.29 10^3/uL (0.1-0.8); Absolute Neutrophil Count 2.67 10^3/uL (1.2-6.7); Basophils % 0.7; Eosinophils % 2.2; HCT 39.8 % (36.0-46.0); HGB 12.3 g/dL (11.2-15.7); Immature Grans % 0.2; Lymphocytes % 30.6; MCH 28.7 pg (27.0-33.0); MCHC 30.9 % (32.0-36.0); MCV 92.8 fL (80-95); MPV 10.2 fL (8.0-11.0); Monocytes % 6.5; Neutrophils % 59.8; Nucleated RBC 0 %; Platelet Count 250 10^3/uL (130-400); RBC 4.29 10^6/uL (3.93-5.22); RDW 12.8 % (11.7-14.6); RDW-SD 43.4 fL; WBC 4.47 10^3/uL (4.4-10.8)
[2021-05-04 20:09] LABS: FREE T4 0.84 ng/dL (0.76-1.46); TSH 0.68 uIU/mL (0.36-3.74)
== END 2021-05-04 15:16 | disposition home or self-care (01) ==
LOC: NCHCN 15:15
PROVIDERS: PCP Nurse Practitioner; Visit Provider Physician Assistant
DX: D64.9 Anemia, unspecified (principal); L29.9 Pruritus, unspecified
CPT/HCPCS: 84439; 84443; 85025

== ENCOUNTER 2021-12-13 12:36 | Outpatient (REF) | payer MEDICAID, SELFPAY ==
--- NOTE | 2021-12-13 11:30 | PAPFT_PTH ---
PATIENT: Chloe Hudson LOC: [facility] U#:[id number] AGE/SX: 26/F ROOM: RE12/13/[address]: Tierney Duran CNM : 1995 BED: DIS: 12/13/2021 SPEC #: [id number] RECD: 12/13/21 12:51 STATUS: SHRUTHI REQ #: [id number] DANA: 12/13/21 11:[address]: Tierney Duran DEPT: [facility] Cytology RECD BY: Araceli Farias ENTERED: 12/13/21 12:51 SP TYPE: PAPFT OTHR DR: Steffi Morris Tissues: 1 - CX/ENDOCX FOR PAP SMEARS Procedures: PAP THIN PREP/UVM Screening Comments: [id number]
[2021-12-14 15:03] LABS: Chlamydia Result Negative (Negative); GC Result Negative (Negative)
== END 2021-12-13 12:37 | disposition home or self-care (01) ==
LOC: LBN 12:36
PROVIDERS: PCP Nurse Practitioner; Visit Provider Advanced Practice Midwife
DX: R10.32 Left lower quadrant pain (principal); Z12.4 Encounter for screening for malignant neoplasm of cervix; Z11.3 Encounter for screening for infections with a predominantly sexual mode of transmission
CPT/HCPCS: 87491; 87591; 88142

== ENCOUNTER → 2022-01-03 01:18 | Outpatient (CLI) | payer MEDICAID, SELFPAY ==
--- NOTE | 2022-01-03 06:45 | DI.US_ITS ---
Exam(s) US PELVIS EXAM: US PELVIS CLINICAL HISTORY: left side pelvic pain,llq abd pain, lt ovarian cyst,r10.32,n83.202 TECHNIQUE: Transabdominal imaging was performed using standard protocol. The patient refused transv aginal imaging. COMPARISON: No exams were available for comparison FINDINGS: KIDNEYS: Kidneys are symmetric in size. No evidence of renal calculi. No evidence of hydronephrosis. No renal mass or cyst identified. UTERUS: Anteverted. 8.5 x 4.5 by 6.7 cm Endometrium: 15 millimeters. Myometrium: Unremarkable. Cervix: Unremarkable. OVARIES: Right: Cyst or mass: Dominant follicle 2.7 cm Left: Cyst or mass: None. DOPPLER: Color: Symmetric and uniform flow to both ovaries. No hyperemia. Duplex: Normal ovarian arterial waveforms visualized. CUL-DE-SAC: Free fluid: Trace, physiologic. IMPRESSION: 1. Normal-appearing uterus with endometrial stripe within normal limits. 2. Unremarkable bilateral ovaries. Dominant follicle right ovary. No evidence of left ovarian cyst or mass. No evidence of torsion.. DATA REPOSITORY:
== END ==
PROVIDERS: PCP Physician Assistant; Visit Provider Advanced Practice Midwife
DX: N83.202 Unspecified ovarian cyst, left side (principal)
CPT/HCPCS: 76856

== ENCOUNTER 2022-09-27 10:26 | Outpatient (REF) | payer MEDICAID, SELFPAY ==
[2022-09-27 16:18] LABS: Iron 108 ug/dL (50-170)
[2022-09-27 16:21] LABS: Hemoglobin A1C 5.3 % (<5.7)
[2022-09-27 17:53] LABS: Calculated LDL 89 mg/dL (<100); Cholesterol 156 mg/dL (<200); HDL Cholesterol 58 mg/dL (40-60); Triglyceride 48 mg/dL (<150)
== END 2022-09-27 10:27 | disposition home or self-care (01) ==
LOC: NCHCN 10:26
PROVIDERS: PCP Physician Assistant; Visit Provider Physician Assistant
DX: D64.9 Anemia, unspecified (principal); R73.03 Prediabetes; R07.89 Other chest pain
CPT/HCPCS: 80061; 83036; 83540

== ENCOUNTER 2023-01-18 13:03 | Outpatient (CLI) | payer MEDICAID, SELFPAY ==
[2023-01-18 11:33] LABS: HCG Quant, Pregnancy 10 mIU/mL (1-3)
== END 2023-01-18 13:04 | disposition home or self-care (01) ==
LOC: LBO 13:04
PROVIDERS: PCP Physician Assistant; Visit Provider Advanced Practice Midwife
DX: Z32.01 Encounter for pregnancy test, result positive (principal)
CPT/HCPCS: 36415; 84702

== ENCOUNTER 2023-01-22 04:12 | Outpatient (CLI) | payer MEDICAID, SELFPAY ==
[2023-01-22 13:27] LABS: HCG Quant, Pregnancy 1 mIU/mL (1-3)
== END 2023-01-22 04:13 | disposition home or self-care (01) ==
PROVIDERS: PCP Physician Assistant; Visit Provider Advanced Practice Midwife
DX: Z32.01 Encounter for pregnancy test, result positive (principal)
CPT/HCPCS: 36415; 84702

== ENCOUNTER → 2023-02-14 00:37 | Outpatient (CLI) | payer MEDICAID, SELFPAY ==
--- NOTE | 2023-02-14 07:15 | DI.US_ITS ---
Exam(s) US PELVIS TRANSVAGINAL EXAM: US PELVIS TRANSVAGINAL CLINICAL HISTORY: lower pelvic/abd pain,r10.30 TECHNIQUE: Transabdominal and transvaginal imaging was performed using standard protocol. COMPARISON: US US PELVIS from 01/03/2022 FINDINGS: UTERUS: Anteverted. 9.1 x 5.2 x 6.3 cm Endometrium: 14 mm Myometrium: Unremarkable. Cervix: Unremarkable. OVARIES: Right: Cyst or mass: None. Left: Cyst or mass: None. DOPPLER: Color: Symmetric and uniform flow to both ovaries. No hyperemia. CUL-DE-SAC: Free fluid: None. IMPRESSION: 1. Mildly enlarged uterus without evidence of focal fibroid. Endometrium appears homogeneous. 2. Unremarkable bilateral ovaries. DATA REPOSITORY:
== END ==
PROVIDERS: PCP Physician Assistant; Visit Provider Advanced Practice Midwife
DX: R10.30 Lower abdominal pain, unspecified (principal)
CPT/HCPCS: 76830; 76856

== ENCOUNTER 2023-04-17 13:19 | Emergency (ER) | payer MEDICAID, SELFPAY ==
[2023-04-17 13:20] VITALS: BP 118/83; PULSE 125; RESP 15; TEMP 36.9; O2SAT 100
[2023-04-17 13:25] VITALS: BP 118/83; PULSE 125; RESP 15; TEMP 36.9; O2SAT 100
--- NOTE | 2023-04-17 13:33 | DI.US_ITS ---
Exam(s) US ABDOMEN LIMITED EXAM: US ABDOMEN LIMITED CLINICAL HISTORY: RUQ PAIN TECHNIQUE: Ultrasound abdomen performed using standard protocol. COMPARISON: None FINDINGS: LIVER: Normal size. Normalechogenicity. No focal liver lesions are seen.. GALLBLADDER: No evidence of cholelithiasis. Question as well amount of sludge versus artifact in the neck of the gallbladder. No evidence of wall thickening. No pericholecystic fluid identified. SEALS'S SIGN: Negative. BILIARY SYSTEM: No intrahepatic or extrahepatic biliary ductal dilation. RIGHT KIDNEY: Normal size. No evidence of renal calculi. No evidence of hydronephrosis. No suspicious renal mass. No cyst identified. PANCREAS: Normal where visualized. ABDOMINAL AORTA AND IVC: Visualized portions normal caliber. ASCITES: None seen. IMPRESSION: Question small amount of sludge versus artifact in the neck of the gallbladder. No evidence of stone s or wall thickening. DATA REPOSITORY:
--- NOTE | 2023-04-17 13:35 | ED.GENADUL_ITS ---
Discharge Plan Disposition Patient Disposition: Against Medical Advice Discharge Details Clinical Impression: Pyelonephritis, Abdominal pain, Leukocytosis, Sepsis Primary Care Provider: Shaun Mix ED Provider: Scarlet Minaya Home Meds and New Rx's Prescriptions: New ciprofloxacin HCl [Cipro] 500 mg tablet 500 mg PO BID 7 Days Qty: 14 0RF ondansetron 4 mg tablet,disintegrating 4 mg PO Q6H PRN (Reason: nausea and vomiting) Qty: 10 0RF No Action propranolol 40 mg tablet 40 mg PO TID PRN Patient Comments: TAKE ONE TABLET BY MOUTH THREE TIMES A DAY NEEDED FOR ANXIETY Discharge Instructions Additional Instructions: Your CT scan is concerning for pyelonephritis. Urine culture has been sent. We will start antibiotics for coverage. I have also sent some Zofran to take as needed for nausea. Take the complete dose of antibiotics as prescribed. Return to the emergency department if you develop fever, worsening pain. Inability to tolerate the medications. Please drink plenty of water. Please make a follow- up appointment with your primary care provider in 7 to 10 days for reevaluation of your symptoms. Medical Decision Making Emergent evaluation of abdominal pain. Patient was evaluated in urgent care and sent here for further testing. She does have right upper quadrant tenderness on exam. Initial differential includes cholelithiasis, cholecystitis. UTI, kidney stone. Will check lab work and get ultrasound of the right upper quadrant. 1420: Labwork reviewed. There is significant leukocytosis with shift. White blood cell count 19. Her ultrasound does not demonstrate obvious cholecystitis. I discussed with general surgery. Given her white blood cell count, she is recommending a CT scan of the abdomen to evaluate for further etiologies. 1530: Discussed CT scan with radiologist, it appears that the patient has right pyelonephritis. She does not have CVA tenderness on the right. I will give a dose of Rocephin. Her first urinalysis was not considerably abnormal but was contaminated with a fair amount of squamous. Discussed with the patient and will get a catheterized sample to send for culture. I am recommending admission with IV antibiotics. The patient will discuss with her pain to make sure that she has childcare in order to do this. 1645: Cath urine sample again does not demonstrate infection. A culture has been sent on this urine sample. I again discussed CT findings with the radiologist with consideration of the second urine sample. They again confirmed that there are no other sources of infection and that the right kidney does appear consistent with pyelonephritis. At this time the patient is unable to stay in the hospital due to childcare considerations. I advised risks and benefits of leaving the hospital at this time. Strict return precautions advised. The patient will be leaving AGAINST MEDICAL ADVICE. I will treat her with Cipro at home. I will also prescribe a prescription of Zofran. Patient understands to return to the emergency department if her symptoms are worsening and otherwise should follow-up with the PCP for reevaluation and make sure that the symptoms have resolved and that the kidney function and appearance have normalized. Medical Records Medical records reviewed: Yes I reviewed the patient's medical records. Lab Data Lab results reviewed: Yes I reviewed the patient's lab results. HPI General Date/Time Provider Initiated Documentation: 04/17/23 13:22 . Limitations to Documentation: no limitations . Information obtained by: patient . HPI Narrative: 27-year-old female withput significant past medical history presents for evaluation of right upper quadrant abdominal pain. She reports that the pain has been present for the last 4 days. It was worse yesterday and the day before. Associated with fever of 101. Today is not as bad. Associated with decreased appetite, poor oral intake. Pain localized to the upper right part of her abdomen. No real pain in the back, does not radiate. Pain comes and goes. Denies any dysuria, hematuria, urgency or frequency. Related Data Home Medications Medication Instructions Recorded Confirmed ciprofloxacin HCl 500 mg tablet 500 mg PO BID 7 days #14 tabs 04/17/23 (Cipro) ondansetron 4 mg disintegrating 4 mg PO Q6H PRN nausea and 04/17/23 tablet vomiting #10 tabs propranolol 40 mg tablet 40 mg PO TID PRN 04/17/23 04/17/23 Previous Rx's Medication Instructions Recorded ciprofloxacin HCl 500 mg tablet 500 mg PO BID 7 days #14 tabs 04/17/23 (Cipro) ondansetron 4 mg disintegrating 4 mg PO Q6H PRN nausea and 04/17/23 tablet vomiting #10 tabs Allergies Allergy/AdvReac Type Severity Reaction Status Date / Time adhesive tape AdvReac Intermediate Skin Rash Verified 04/17/23 13:25 General Stated Complaint: Abd Prob MICHELE: 3 PFSH All Active Problems (Updated 04/17/23 @ 16:56 by Scarlet Minaya MD) Sepsis (Acute) Leukocytosis (Acute) Abdominal pain (Acute) Pyelonephritis (Acute) Lower abdominal pain (Acute) (Acute) Missed menses (Acute) Cervical cancer screening (Acute) Encounter for annual routine gynecological examination (Acute) Lactating mother (Acute) Irregular menses (Acute) Left ovarian cyst (Acute) Left lower quadrant abdominal pain (Acute) Term delivered (Acute) Fluttering heart (Acute) Feeling of chest tightness (Acute) Dyspareunia in female (Acute) History of migraine (Acute) Family history of hypothyroidism (Acute) Medical History Prolonged heart deceleration Spontaneous onset of labor Vaginal discharge Positive test Presence of of copper intrauterine contraceptive device History of ear infection Difficult visualization of Tympanic membranes due to anatomy Family History Mother Rheumatoid arthritis Thyroid disease Lupus (systemic lupus erythematosus) Father Family history unknown Maternal Grandmother Well adult Maternal Grandfather Diabetes Heart disease Paternal Grandmother Family history unknown Paternal Grandfather Family history unknown Social History Smoking/Tobacco Use Status: Current every day Tobacco Type: cigarettes Smoking risk assessment performed?: Yes Alcohol Intake: current Alcohol Intake frequency: holidays/special occasions only Drug use: Rarely Substance use type: marijuana Housing: house Female Reproductive History Menstrual control method: copper IUCD History History 4 Para 3 Hx # Term Pregnancies 3 Multiple births 0 Hx # Pregnancies 0 Ectopic pregnancies 0 AB induced 0 Hx Number of Living Children 3 AB spontaneous 1 Past Pregnancies Del. Date GA/Weeks # Preg Succ Route Wgt Sex Labor Lgth Anesth esia Location [facility] 08/01/17 40 No vaginal 3146.797 g Female 11 hrs [facility] 01/14/19 39 No vaginal 3231.846 g Male Anea 10/28/20 28 01/27/21 41 No vaginal 4519.764 g Female [facility] [place]; 01/22/23 4 No No Delivery Date: 08/01/17 Last Updated by: Tierney English CNM epidural at 7 cm I finally gave in. carmita Delivery Date: 01/14/19 Last Updated by: Viri Woods AROM, moderate mec. staining noted. Minor labial abrasions, no need for repair. Yonathan, generally unsatisfied with the experience, wasn't offered the tub or physioball, etc. Delivery Date: 10/28/20 Last Updated by: Dianna Starks LPN Patient has transferred OB care to Home midwifery service. Delivery Date: 01/27/21 Last Updated by: Dianna Starks LPN Patient was to deliver at home but presented to this facility with need for pain control. Heather Xiao Delivery Date: 01/22/23 Last Updated by: Dianna Starks LPN spontaneous miscarriage at 4w5d; Exam Narrative Exam Narrative: Review of Systems: All systems reviewed & are unremarkable except as noted in HPI and below: CONSTITUTIONAL: Alert and oriented Well-developed, appears uncomfortable HEENT: NCAT EYES: PERRL, no conjunctival injection MOUTH Moist MM CVS: RRR, No murmurs or gallops. Peripheral pulses 2+ and equal in all extremities Brisk capillary refill in all extremities. No peripheral edema RESP: Unlabored respiratory effort, Clear to auscultation bilaterally No wheezes rales or rhonchi GI: Soft, + Raza sign, right upper quadrant tenderness, guarding, rebound, no CVA tenderness MSK: Extremities with full range of motion, no deformity or TTP SKIN: Warm, Dry. No rashes or lesions. NEURO: No focal neurologic deficits. Course Vital Signs Vital signs: Vital Signs Temperature 36.9 C 04/17/23 13:20 Pulse 125 H 04/17/23 13:20 Respiratory Rate 15 04/17/23 13:20 Blood Pressure 118/83 04/17/23 13:20 Pulse Oximetry 100 04/17/23 13:20 Temperature 36.9 C 04/17/23 13:25 Temperature Source Temporal Artery Scan 04/17/23 13:25 Pulse 125 H 04/17/23 13:25 Respiratory Rate 15 04/17/23 13:25 Respiratory Effort Normal 04/17/23 13:24 Blood Pressure 118/83 04/17/23 13:25 Blood Pressure Position Sitting 04/17/23 13:25 Pulse Oximetry 100 04/17/23 13:25 Oxygen Delivery Method Room Air 04/17/23 13:25 Oxygen Flow Rate 0 04/17/23 13:25 Pain Level 2 04/17/23 13:25 Critical Care Time Critical Care Time Critical Care Time: Yes Total Critical Care Time: 34 Attestation: CRITICAL CARE Upon my evaluation, this patient had a high probability of imminent or life- threatening deterioration due to sepsis which required my direct attention, intervention, and personal management. I have personally provided 34 minutes of critical care time exclusive of time spent on separately billable procedures. Time includes review of laboratory data, radiology results, discussion with consultants, and monitoring for potential decompensation. Interventions were performed as documented above PAWSS Have you Been Recently Intoxicated or Drunk Within the Last 30 days?: No Have you Ever Experienced Previous Episodes of Alcohol Withdrawal?: No Have you ever Experienced Withdrawal Seizures?: No Have you ever Experienced Delirium Tremens(DT)s?: No Have you ever undergone Alcohol Rehabilitation Treatment (i.e, inpt ot outpatient treatment programs)?: No Have you ever Experienced Blackouts?: No Have you ever Combined Alcohol with other Downers within the last 90 days?: No Have you ever Combined Alcohol with any other Substance of Abuse during the last 90 days?: No Result: 0
[2023-04-17] MEDS: Ondansetron 4 MG/2 ML VIAL IVP (13:39)
[2023-04-17] MEDS: Normal Saline 1,000 ML 1000 ML IV (13:39)
[2023-04-17] MEDS: Ketorolac 15 MG/ML VIAL 10 MG IVP (13:41)
[2023-04-17 13:45] LABS: Abs Immature Grans 0.09 10^3/uL (0.0-0.06); Absolute Basophil Count 0.06 10^3/uL (0.0-0.2); Absolute Eosinophil Count 0.04 10^3/uL (0.0-0.7); Absolute Lymphocyte Count 1.59 10^3/uL (1.2-3.4); Absolute Monocyte Count 1.45 10^3/uL (0.1-0.8); Absolute Neutrophil Count 16.13 10^3/uL (1.2-6.7); Basophils % 0.3; Eosinophils % 0.2; HCT 37.9 % (36.0-46.0); HGB 12.3 g/dL (11.2-15.7); Immature Grans % 0.5; Lymphocytes % 8.2; MCH 29.8 pg (27.0-33.0); MCHC 32.5 % (32.0-36.0); MCV 92 fL (80-95); Monocytes % 7.5; Neutrophils % 83.3; Platelet Count 264 10^3/uL (130-400); RBC 4.13 10^6/uL (3.93-5.22); RDW 13.2 % (11.7-14.6); RDW-SD 45.2 fL; WBC 19.36 10^3/uL (4.4-10.8)
[2023-04-17 13:57] LABS: ALT 16 U/L (14-59); AST 15 U/L (15-37); Albumin 3.7 g/dL (3.4-5.0); Alkaline Phosphatase 80 U/L (46-116); Anion Gap 11.3 mmol/L (3-11); BUN 8 mg/dL (7-18); Bilirubin, Total 0.2 mg/dL (0.2-1.0); CO2 25.7 mmol/L (21.0-32.0); CREATININE 1.1 mg/dL (0.55-1.02); Calcium 9.3 mg/dL (8.5-10.1); Chloride 99 mmol/L (98-107); Estimated GFR 69.76 (mL/min/1.73m2); Glucose 130 mg/dL (74-106); Lipase 16 U/L (16-77); Potassium 3.9 mmol/L (3.5-5.1); Sodium 136 mmol/L (136-145); Total Protein 8.2 g/dL (6.4-8.2)
[2023-04-17 14:14] LABS: Bilirubin Negative (Negative); Blood Negative (Negative); Clarity Sl Cloudy (Clear); Glucose Negative (Negative); Ketones Negative (Negative); Leukocyte Esterase Trace (Negative); Nitrite Negative (Negative); Specific Gravity <= 1.005 (1.005-1.025); Urobilinogen 0.2 mg/dL (Up to 0.2)
[2023-04-17 14:23] LABS: Bacteria Moderate HPF (Negative); C & S Indicated? No/Sq. Contamination; Casts Negative LPF (Negative); Crystals Negative HPF (Negative); Epithelial Cells Many HPF (Negative); Mucus Negative (Negative); RBC 0-2 HPF (0-2)
[2023-04-17] MEDS: Omnipaque 350 MG/ML 100 ML BTL IJ (15:07)
[2023-04-17] MEDS: Normal Saline - Diluent 50 ML VIAL IJ (15:08)
--- NOTE | 2023-04-17 15:25 | DI.CT_ITS ---
Exam(s) CT ABDOMEN PELVIS W EXAM: CT ABDOMEN PELVIS W CLINICAL HISTORY: abd pain. TECHNIQUE: Imaging Protocol: Axial computed tomography images with coronal and sagittal reformatted images were created and reviewed CONTRAST MATERIAL: Intravenous: Omnipaque 350 Contrast volume:100 ml Oral: no COMPARISON: US US ABDOMEN LIMITED from 04/17/2023 FINDINGS: ABDOMEN and PELVIS: Lung Bases: No acute findings. Liver: Normal density. No measurable mass. Gallbladder and biliary tract: No radiodense calculus or dilation. Pancreas: Normal density. No abnormal calcifications or inflammatory process. No evidence of mass. Spleen: Normal. Kidneys: Patchy areas of decreased perfusion in the right kidney likely reflecting pyelonephritis. N o perinephric abscess. No hydronephrosis. Vasculature appears intact. No radiodense stones. No obs tructive uropathy. No suspicious masses seen. Adrenal glands: No masses seen. Vasculature: Abdominal aorta non-dilated. Soft tissues: Unremarkable. Bladder: No gross wall thickening. No calculi.No focal mass. Bowel: No obstruction. No bowel wall thickening. Appendix normal. Peritoneal cavity: Trace pelvic fluid, likely physiologic. No focal collection or mesenteric inflamm atory response. Bones: Unremarkable for age. Reproductive organs: Within normal limits. Lymph nodes: Unremarkable. IMPRESSION:: Right pyelonephritis. Findings discussed with emergency department provider. RADIATION DOSE DELIVERED: Total DLP DATA REPOSITORY: All CT scans at this facility are submitted to the National Radiology Data Registry (NRDR) Dose Index Registry (DIR) with the [employer] (A[employer]). RADIATION OPTIMIZATION: All CT scans at this facility use at least one of these dose optimization te chniques: automated exposure control; mA and/or kV adjustment per patient size (includes targeted exa ms where dose is matched to clinical indication); or iterative reconstruction.
[2023-04-17] MEDS: cefTRIAXone 2 GM/50 ML BAG IVPB (15:39)
[2023-04-17 15:47] LABS: Bilirubin Small (Negative); Blood Negative (Negative); Clarity Clear (Clear); Glucose Negative (Negative); Ketones 15 mg/dL (Negative); Leukocyte Esterase Negative (Negative); Nitrite Negative (Negative)
[2023-04-17 16:02] LABS: Bacteria Negative HPF (Negative); C & S Indicated? No/Sq. Contamination; Crystals Negative HPF (Negative); Epithelial Cells Moderate HPF (Negative); Mucus Moderate (Negative)
[2023-04-17 16:50] VITALS: BP 101/64; PULSE 102; RESP 20
== END 2023-04-17 16:53 | disposition left against medical advice (07) ==
PROVIDERS: Emergency Provider Emergency Medicine; PCP Physician Assistant
DX: R10.11 Right upper quadrant pain (principal); N12 Tubulo-interstitial nephritis, not specified as acute or chronic; D72.829 Elevated white blood cell count, unspecified; A41.9 Sepsis, unspecified organism
CPT/HCPCS: 36415; 80053; 81025; 83690; 87040; 96361; 96365; 96375; 99291; 74177; 76705; 81003; 81015; 85025; J1885; J2405; J3490

== ENCOUNTER 2023-08-08 21:26 | Outpatient (REF) | payer MEDICAID, SELFPAY | END 2023-08-08 21:27 | disposition home or self-care (01) | LOC: LBN 21:26 | PROVIDERS: PCP Physician Assistant; Visit Provider Emergency Medicine Emergency Medical Services | DX: R82.998 Other abnormal findings in urine (principal); R10.84 Generalized abdominal pain | CPT/HCPCS: 87086 ==

== ENCOUNTER 2023-08-17 18:11 | Emergency (ER) | payer MEDICAID, SELFPAY ==
[2023-08-17 18:25] VITALS: BP 152/93; PULSE 107; RESP 18; TEMP 36.8; O2SAT 98
[2023-08-17 18:47] VITALS: RESP 18
[2023-08-17] MEDS: Ondansetron O.D.T. 4 MG TABEF PO (19:04)
[2023-08-17 19:08] LABS: Abs Immature Grans 0.02 10^3/uL (0.0-0.06); Absolute Basophil Count 0.03 10^3/uL (0.0-0.2); Absolute Eosinophil Count 0.15 10^3/uL (0.0-0.7); Absolute Lymphocyte Count 3.14 10^3/uL (1.2-3.4); Absolute Monocyte Count 0.42 10^3/uL (0.1-0.8); Absolute Neutrophil Count 3.46 10^3/uL (1.2-6.7); Basophils % 0.4; Bilirubin Negative (Negative); Blood Moderate (Negative); Clarity Clear (Clear); Eosinophils % 2.1; Glucose Negative (Negative); HGB 12.2 g/dL (11.2-15.7); Immature Grans % 0.3; Ketones Negative (Negative); Leukocyte Esterase Negative (Negative); Lymphocytes % 43.5; MCH 29.7 pg (27.0-33.0); MCHC 32.1 % (32.0-36.0); MCV 93 fL (80-95); Monocytes % 5.8; Neutrophils % 47.9; Nitrite Negative (Negative); RBC 4.11 10^6/uL (3.93-5.22); RDW 12.7 % (11.7-14.6); RDW-SD 43.4 fL; Urobilinogen 0.2 mg/dL (Up to 0.2); WBC 7.22 10^3/uL (4.4-10.8)
[2023-08-17 19:20] LABS: Bacteria Rare HPF (Negative); C & S Indicated? No; Crystals Negative HPF (Negative); Epithelial Cells Few HPF (Negative); Mucus Negative (Negative); WBC Negative HPF (0-5)
[2023-08-17 19:31] LABS: Diff Comment PLT Morph Reviewed; RBC Morphology Normal
--- NOTE | 2023-08-17 19:40 | W.ED.GENAD ---
Discharge Plan Disposition Patient Disposition: Home Condition: Stable Discharge Details Clinical Impression: Abdominal pain Primary Care Provider: Shaun Mix ED Provider: Araceli Villavicencio Home Meds and New Rx's Prescriptions: New sucralfate [Carafate] 1 gram tablet 1 g PO BID Qty: 60 0RF ondansetron HCl 4 mg tablet 4 mg PO Q8-10H 4 Days Qty: 12 0RF Discharge Instructions Instructions: Abdominal Pain (ED) Additional Instructions: Take the Carafate as prescribed, and continue on your omeprazole Take Zofran as needed for nausea and vomiting Antlers diet Return earlier should you have new or worsening including fever, uncontrolled vomiting, diarrhea Take with primary care physician recommended next week Stand Alone Forms: Work Release HPI General Date/Time Provider Initiated Documentation: 08/17/23 18:43. HPI Narrative: This 27-year-old female presents with report of right flank and epigastric pain intermittently for the past 3 weeks. States it is improving but has not completely resolved which is why she presents. Denies known exacerbating relieving factors. Denies any chance of . Denies any chest pain or shortness of breath. Denies known fever. Has had some intermittent mitten chills. Denies any cough. Denies known sick contacts. Related Data Home Medications Medication Instructions Recorded Confirmed ondansetron HCl 4 mg tablet 4 mg PO Q8-10H 4 days #12 tabs 08/17/23 sucralfate 1 gram tablet (Carafate) 1 g PO BID #60 tabs 08/17/23 Previous Rx's Medication Instructions Recorded ondansetron HCl 4 mg tablet 4 mg PO Q8-10H 4 days #12 tabs 08/17/23 sucralfate 1 gram tablet (Carafate) 1 g PO BID #60 tabs 08/17/23 Allergies Allergy/AdvReac Type Severity Reaction Status Date / Time adhesive tape AdvReac Intermediate Skin Rash Verified 08/17/23 18:49 General Stated Complaint: [facility]Medical MICHELE: 4 Exam Narrative Exam Narrative: Uvula midline, moist mucous membranes alert and oriented x 4, no jaundice or icterus, lungs clear to auscultation, cardiac rate rhythm regular, minimal epigastric tenderness, no rebound or guarding, no pallor, alert and oriented x 4, no peripheral edema, well in appearance Course Vital Signs Vital signs: Vital Signs Temperature 36.8 C 04/26/24 18:25 Pulse 107 H 08/17/23 18:25 Respiratory Rate 18 08/17/23 18:25 Blood Pressure 152/93 H 08/17/23 18:25 Pulse Oximetry 98 08/17/23 18:25 Temperature 36.8 C 08/17/23 18:25 Temperature Source Temporal Artery Scan 08/17/23 18:25 Pulse 107 H 08/17/23 18:25 Respiratory Rate 18 08/17/23 18:47 Respiratory Effort Normal 08/17/23 18:47 Respiratory Depth Normal 08/17/23 18:47 Respiratory Pattern Normal 08/17/23 18:47 Blood Pressure 152/93 H 08/17/23 18:25 Pulse Oximetry 98 08/17/23 18:25 Oxygen Delivery Method Room Air 08/17/23 18:25 Oxygen Flow Rate 0 08/17/23 18:25 Lab/Test Results Lab/Test Results: Laboratory Tests Range/Units 08/17/23 18:45 WBC (4.4-10.8) 10^3/uL 7.22 RBC (3.93-5.22) 10^6/uL 4.11 Hgb (11.2-15.7) g/dL 12.2 Hct (36.0-46.0) % 38.0 MCV (80-95) fL 93 MCH (27.0-33.0) pg 29.7 MCHC (32.0-36.0) % 32.1 RDW (11.7-14.6) % 12.7 Plt Count (130-400) 10^3/uL MPV (8.0-11.0) fL Immature Gran % 0.3 Neutrophils % 47.9 Lymphocytes % 43.5 Monocytes % 5.8 Eosinophils % 2.1 Basophils % 0.4 Nucleated RBC % (0.0-0.3) % 0.0 Absolute Neutrophils (1.2-6.7) 10^3/uL 3.46 Absolute Lymphocytes (1.2-3.4) 10^3/uL 3.14 Absolute Monocytes (0.1-0.8) 10^3/uL 0.42 Absolute Eosinophils (0.0-0.7) 10^3/uL 0.15 Absolute Basophils (0.0-0.2) 10^3/uL 0.03 RBC Morphology Normal Sodium Cancelled Potassium Cancelled Chloride Cancelled Carbon Dioxide Cancelled Anion Gap Cancelled BUN Cancelled Creatinine Cancelled Est GFR (CKD-EPI 2020) Cancelled Glucose Cancelled Calcium Cancelled Total Bilirubin Cancelled AST Cancelled ALT Cancelled Alkaline Phosphatase Cancelled Total Protein Cancelled Albumin Cancelled Lipase Cancelled Urine Color (Yellow) Yellow Urine Clarity (Clear) Clear Urine pH (5-8) 7.0 Ur Specific [place] (1.005-1.025) 1.020 Urine Protein (Neg-Trace) mg/dL Negative Urine Ketones (Negative) mg/dL Negative Urine Blood (Negative) Moderate H Urine Nitrite (Negative) Negative Urine Bilirubin (Negative) Negative Urine Urobilinogen (Up to 0.2) mg/dL 0.2 Ur Leukocyte Esterase (Negative) Negative Urine RBC (0-2) HPF 3-5 H Urine WBC (0-5) HPF Negative Ur Epithelial Cells (Negative) HPF Few Urine Crystals (Negative) HPF Negative Urine Bacteria (Negative) HPF Rare Urine Mucus (Negative) Negative Ur Culture Indicated? No Urine Glucose (Negative) mg/dL Negative POC Urine Test Start: 08/17/23 18:42 Freq: Status: Complete Protocol: Document 08/17/23 18:43 JOSE (Rec: 08/17/23 18:43 JOSE [id number]) Test(Urine)-POC POC- Test(urine) Negative POC- Test(urine) Negative Medical Decision Making 27-year-old female who is otherwise reportedly healthy presents with epigastric and right upper quadrant discomfort, no rebound or guarding and overall benign exam. I reviewed patient's CT abdomen and pelvis and ultrasound abdomen and pelvis from March 2023 which did not show evidence of acute abnormality aside from pyelonephritis although it was interesting. She had a normal urinalysis and urine culture and was afebrile at that time. I am hesitant to order another CAT scan at this time although patient is concerned that she may have pyelonephritis her exam is inconsistent with this and predominantly her pain is in her epigastric region. She has no leukocytosis her urinalysis is reassuring although I will send it for culture she is overall afebrile and nontoxic. She has some mild relief in symptoms after the administration of GI cocktail. I think patient is stable for discharge home at this time, I will avoid CT imaging and unfortunately we do not have ultrasound availability. Patient states she is simply unable to present for ultrasound during the weekdays secondary to her 's employment. She will follow-up with primary care physician and will return immediately to the emergency department should she have new or worsening complaints. Discharged home in stable condition with stable vitals Quality:SDOH Health Related Social Needs: No Data to Display PFSH All Active Problems (Updated 08/17/23 @ 19:55 by HIWOT [place]) Abdominal pain (Acute) Lower abdominal pain (Acute) (Acute) Missed menses (Acute) Cervical cancer screening (Acute) Encounter for annual routine gynecological examination (Acute) Lactating mother (Acute) Irregular menses (Acute) Left ovarian cyst (Acute) Left lower quadrant abdominal pain (Acute) Term delivered (Acute) Fluttering heart (Acute) Feeling of chest tightness (Acute) Dyspareunia in female (Acute) History of migraine (Acute) Family history of hypothyroidism (Acute) Medical History Prolonged heart deceleration Spontaneous onset of labor Vaginal discharge Positive test Presence of of copper intrauterine contraceptive device History of ear infection Difficult visualization of Tympanic membranes due to anatomy Family History Mother Rheumatoid arthritis Thyroid disease Lupus (systemic lupus erythematosus) Father Family history unknown Maternal Grandmother Well adult Maternal Grandfather Diabetes Heart disease Paternal Grandmother Family history unknown Paternal Grandfather Family history unknown Social History Smoking/Tobacco Use Status: Current every day Tobacco Type: cigarettes Smoking risk assessment performed?: Yes Alcohol Intake: current Alcohol Intake frequency: holidays/special occasions only Drug use: Rarely Substance use type: marijuana Housing: house Do you feel safe at home: Yes Female Reproductive History Menstrual control method: copper IUCD History History 4 Para 3 Hx # Term Pregnancies 3 Multiple births 0 Hx # Pregnancies 0 Ectopic pregnancies 0 AB induced 0 Hx Number of Living Children 3 AB spontaneous 1 Past Pregnancies Del. Date GA/Weeks # Preg Succ Route Wgt Sex Labor Lgth Anesthesia Location [facility] 08/01/17 40 No vaginal 3146.797 g Female 11 hrs [facility] 01/14/19 39 No vaginal 3231.846 g Male Anea 10/28/20 28 01/27/21 41 No vaginal 4519.764 g Female [facility] [place]; 01/22/23 4 No No Delivery Date: 08/01/17 Last Updated by: Tierney English CNM epidural at 7 cm I finally gave in. carmita Delivery Date: 01/14/19 Last Updated by: Viri Woods AROM, moderate mec. staining noted. Minor labial abrasions, no need for repair. Yonathan, generally unsatisfied with the experience, wasn't offered the tub or physioball, etc. Delivery Date: 10/28/20 Last Updated by: Dianna Starks LPN Patient has transferred OB care to Home midwifery service. Delivery Date: 01/27/21 Last Updated by: Dianna Starks LPN Patient was to deliver at home but presented to this facility with need for pain control. Heather Xiao Delivery Date: 01/22/23 Last Updated by: Dianna Starks LPN spontaneous miscarriage at 4w5d; PAWSS Have you Been Recently Intoxicated or Drunk Within the Last 30 days?: No Have you Ever Experienced Previous Episodes of Alcohol Withdrawal?: No Have you ever Experienced Withdrawal Seizures?: No Have you ever Experienced Delirium Tremens(DT)s?: No Have you ever undergone Alcohol Rehabilitation Treatment (i.e, inpt ot outpatient treatment programs)?: No Have you ever Experienced Blackouts?: No Have you ever Combined Alcohol with other Downers within the last 90 days?: No Have you ever Combined Alcohol with any other Substance of Abuse during the last 90 days?: No Positive Blood Alcohol level on Presentation? [PCS.BAL]: No Evidence of Increased Autonomic Activity (i.e. HR>120, tremor, sweating, agitation, nausea)?: No Result: 0
[2023-08-17 19:42] VITALS: BP 132/68; PULSE 86; RESP 18; O2SAT 100
[2023-08-17 20:01] VITALS: BP 126/66; PULSE 76
[2023-08-17 20:05] LABS: ALT 16 U/L (14-59); AST 11 U/L (15-37); Albumin 4.1 g/dL (3.4-5.0); Alkaline Phosphatase 62 U/L (46-116); Anion Gap 10.8 mmol/L (3-11); BUN 5 mg/dL (7-18); Bilirubin, Total 0.2 mg/dL (0.2-1.0); CO2 27.2 mmol/L (21.0-32.0); CREATININE 0.8 mg/dL (0.55-1.02); Chloride 104 mmol/L (98-107); Estimated GFR 102.22 (mL/min/1.73m2); Glucose 108 mg/dL (74-106); Lipase 26 U/L (16-77); Potassium 3.5 mmol/L (3.5-5.1); Sodium 142 mmol/L (136-145); Total Protein 7.7 g/dL (6.4-8.2)
[2023-08-17] MEDS: Sucralfate 1 GM TAB PO (20:30)
== END 2023-08-17 20:31 | disposition home or self-care (01) ==
PROVIDERS: Emergency Provider Physician Assistant; PCP Physician Assistant
DX: R10.13 Epigastric pain (principal); R19.7 Diarrhea, unspecified; F17.210 Nicotine dependence, cigarettes, uncomplicated
CPT/HCPCS: 36415; 80053; 81025; 83690; 99283; 81003; 81015; 85025

== ENCOUNTER 2023-11-08 10:14 | Outpatient (CLI) | payer MEDICAID, SELFPAY ==
[2023-11-08 10:51] LABS: HCG Quant, Pregnancy 3 mIU/mL (1-3)
== END 2023-11-08 10:15 | disposition home or self-care (01) ==
LOC: LBO 10:14
PROVIDERS: PCP Physician Assistant; Visit Provider Obstetrics & Gynecology Gynecology
DX: Z32.01 Encounter for pregnancy test, result positive (principal)
CPT/HCPCS: 36415; 84702

== ENCOUNTER 2023-12-19 08:44 | Outpatient (REF) | payer MEDICAID, SELFPAY ==
[2023-12-19 14:47] LABS: HCT 37.1 % (36.0-46.0); HGB 12.1 g/dL (11.2-15.7); MCH 31.3 pg (27.0-33.0); MCHC 32.6 % (32.0-36.0); MCV 96 fL (80-95); MPV 10.8 fL (8.0-11.0); Platelet Count 243 10^3/uL (130-400); RBC 3.86 10^6/uL (3.93-5.22); RDW 13.2 % (11.7-14.6); WBC 5.64 10^3/uL (4.4-10.8)
[2023-12-19 14:59] LABS: ALT 14 U/L (14-59); AST 13 U/L (15-37); Albumin 3.8 g/dL (3.4-5.0); Alkaline Phosphatase 54 U/L (46-116); Anion Gap 8.4 mmol/L (3-11); BUN 10 mg/dL (7-18); Bilirubin, Total 0.17 mg/dL (0.2-1.0); CO2 25.6 mmol/L (21.0-32.0); CREATININE 0.7 mg/dL (0.55-1.02); Chloride 106 mmol/L (98-107); Estimated GFR 119.24 (mL/min/1.73m2); Glucose 90 mg/dL (74-106); Lipase 33 U/L (16-77); Potassium 4.3 mmol/L (3.5-5.1); Sodium 140 mmol/L (136-145); Total Protein 6.7 g/dL (6.4-8.2)
[2023-12-19 15:04] LABS: Calcium 8.8 mg/dL (8.5-10.1)
== END 2023-12-19 08:45 | disposition home or self-care (01) ==
LOC: NCHCN 08:44
PROVIDERS: PCP Physician Assistant; Visit Provider Physician Assistant
DX: R10.9 Unspecified abdominal pain (principal)
CPT/HCPCS: 80053; 83690; 85027

== ENCOUNTER 2024-09-26 13:09 | Outpatient (CLI) | payer SELFPAY ==
--- NOTE | 2024-09-26 13:00 | RT.EKG_ITS ---
APPROVED REPORT Exam: Resting ECG Reason for Exam: Abd pain Patient Location: O HR:60 bpm ECG Measurements Heart Rate 60 AXIS GA 155 P 71 QRSd 75 QRS 88 QT 411 T 40 QTc 411 Conclusion Sinus rhythm...normal P axis, V-rate 50- 99 Probable left atrial enlargement...P >50mS, <-0.10mV V1 RSR' in V1 or V2, probably normal variant...small R' only
== END 2024-09-26 13:10 | disposition home or self-care (01) ==
LOC: DI.CM 13:10
PROVIDERS: PCP Physician Assistant; Visit Provider Nurse Practitioner Family
DX: R10.11 Right upper quadrant pain (principal); I51.7 Cardiomegaly
CPT/HCPCS: 93010

== ENCOUNTER 2024-09-26 15:11 | Outpatient (REF) | payer SELFPAY ==
[2024-09-26 21:26] LABS: Abs Immature Grans 0.02 10^3/uL (0.0-0.06); Absolute Basophil Count 0.03 10^3/uL (0.0-0.2); Absolute Lymphocyte Count 1.83 10^3/uL (1.2-3.4); Absolute Neutrophil Count 5.57 10^3/uL (1.2-6.7); Basophils % 0.4 %; Eosinophils % 1.3 %; HCT 37.3 % (36.0-46.0); Immature Grans % 0.3 %; MCH 28.8 pg (27.0-33.0); MCHC 32.2 % (32.0-36.0); MCV 89 fL (80-95); MPV 10.9 fL (8.0-11.0); Platelet Count 280 10^3/uL (130-400); RBC 4.17 10^6/uL (3.93-5.22); RDW 13.5 % (11.7-14.6); RDW-SD 44.6 fL; WBC 7.95 10^3/uL (4.4-10.8)
[2024-09-26 21:34] LABS: ALT 14 U/L (14-59); AST 12 U/L (15-37); Albumin 4.3 g/dL (3.4-5.0); Alkaline Phosphatase 55 U/L (46-116); Anion Gap 9.9 mmol/L (3-11); BUN 5 mg/dL (7-18); Bilirubin, Total 0.5 mg/dL (0.2-1.0); CO2 25.1 mmol/L (21.0-32.0); CREATININE 0.7 mg/dL (0.55-1.02); Calcium 8.7 mg/dL (8.5-10.1); Chloride 104 mmol/L (98-107); Estimated GFR 119.24 (mL/min/1.73m2); Glucose 90 mg/dL (74-106); Lipase 26 U/L (<78); Sodium 139 mmol/L (136-145); Total Protein 7.2 g/dL (6.4-8.2)
== END 2024-09-26 15:12 | disposition home or self-care (01) ==
LOC: LBN 15:11
PROVIDERS: PCP Physician Assistant; Visit Provider Nurse Practitioner Family
DX: R10.11 Right upper quadrant pain (principal)
CPT/HCPCS: 80053; 83690; 85025

== ENCOUNTER 2024-11-17 14:49 | Outpatient (CLI) | payer SELFPAY ==
[2024-11-17 15:44] LABS: HCG Quant, Pregnancy 260 mIU/mL (1-3)
== END 2024-11-17 14:50 | disposition home or self-care (01) ==
LOC: LBO 14:49
PROVIDERS: PCP Nurse Practitioner Family; Visit Provider Obstetrics & Gynecology
DX: O09.299 Supervision of pregnancy with other poor reproductive or obstetric history, unspecified trimester (principal)
CPT/HCPCS: 36415; 84144; 84702

== ENCOUNTER 2024-11-19 13:34 | Outpatient (CLI) | payer SELFPAY ==
[2024-11-19 14:19] LABS: HCG Quant, Pregnancy 482 mIU/mL (1-3)
== END 2024-11-19 13:35 | disposition home or self-care (01) ==
LOC: LBO 13:35
PROVIDERS: PCP Nurse Practitioner Family; Visit Provider Obstetrics & Gynecology
DX: O09.299 Supervision of pregnancy with other poor reproductive or obstetric history, unspecified trimester (principal)
CPT/HCPCS: 36415; 84702